=== PATIENT | male | born 1970 | race Caucasian/White ===

== ENCOUNTER → 2018-08-31 | Outpatient (CLI) | payer BC, OTHER ==
[~2018-08-31] MED LIST: DILANTIN 100 M100 MG PO; FLEXERIL PO; NABUMETONE 500500 M1 PO; NORCO 5-325 TA1 EACH PO; PRILOSEC 20 MG20 MG PO
--- NOTE | ~2018-08-31 | EKG ---
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
[2018-08-31 10:33] LABS: RDW 13.6 % (10.5-14.5); WBC 4.9 thou/uL (4.0-11.0)
[2018-08-31 10:35] LABS: HEMATOCRIT 41.5 % (42.0-52.0); HEMOGLOBIN 14.5 gm/dL (14.0-18.0); MCH 29.4 pg (26.0-34.0); PLATELET COUNT 236 thou/uL (150-400); RBC 4.94 mil/uL (4.50-6.00)
[2018-08-31 10:48] LABS: ALBUMIN 3.9 g/dL (3.4-5.0); CALCIUM 9.3 mg/dL (8.5-10.1); POTASSIUM 4.2 mmol/L (3.5-5.1); TOTAL BILIRUBIN 0.2 mg/dL (<0.1-1.0); TOTAL PROTEIN 7.3 g/dL (6.4-8.2)
[2018-08-31 11:19] LABS: APTT 27.2 Seconds (24.5-32.8); INR 1.1; PROTIME 10.9 Seconds (9.3-11.4)
[2018-08-31 11:37] LABS: ANISOCYTOSIS SLIGHT
== END ==
LOC: RAD 10:04
PROVIDERS: Orthopaedic Surgery Sports Medicine
DX: Z01.818 Encounter for other preprocedural examination (principal); I49.8 Other specified cardiac arrhythmias